=== PATIENT | male | born 1965 | race Caucasian/White ===

== ENCOUNTER 2022-12-05 21:03 | Emergency (ER) | payer MEDICAID, SELFPAY ==
[2022-12-05 21:08] VITALS: BP 113/65; PULSE 84; RESP 18; TEMP 36.4; O2SAT 95; BMI 26.5
--- NOTE | 2022-12-05 21:22 | XR_ITS ---
The [address] [address] Patient Name: CAROLANN JACKSON MRN: [id number] date: 1965 Sex: M Assigned Patient Location: ED.MAIN Current Patient Location: ER Accession/Order Number: [id number] Exam Date: 12/05/2022 22:08 Report Date: 12/05/2022 22:34 At the request of: TYRA BOND Procedure: XR ribs LT min 3V w CXR1V PLAIN FILM OF THE RIBS LEFT HISTORY: Rib pain. COMPARISON: None. TECHNIQUE: 1 frontal view of the chest and centimeters of the LEFTside of the ribs are submitted for review. FINDINGS: Chest: Lungs: No acute infiltrate. No pneumothorax. Heart: Normal. Pulmonary vessels: Normal. Costophrenic angles: Normal. Evaluation of the apices is limited due to patient's chin positioning. Ribs: Allowing for limitations of underlying lung markings, and overlying bowel gas: Bone mineralization within expected limits of normal. Osseous: No displaced rib fractures Soft tissues: Normal. XR/XR ribs LT min 3V w CXR1V IMPRESSION: Allowing for limitations of underlying lung markings, osteopenia and bowel gas obscuring osseous detail, there is no plain film evidence for displaced rib fracture. If symptoms continue, outpatient CT scan may help better delineate. Electronically authenticated by: KARY SYED Date: 12/05/2022 22:34
[2022-12-05 21:41] LABS: Basophils Absolute Auto 0.1 10^3/uL (0.0-0.1); Basophils Percent Auto 1.4 % (0.2-2.0); Hemoglobin 8.6 g/dL (14.0-18.0); Immature Granulocytes Abs Auto 0.02 10^3/uL (0.00-0.03); Immature Granulocytes Pct Auto 0.3 % (0.0-0.5); Lymphocytes Absolute Auto 1.1 10^3/uL (1.2-3.8); Lymphocytes Percent Auto 19.1 % (20.5-60.0); Mean Corpuscular HGB Conc 30.7 g/dL (29.9-35.2); Mean Corpuscular Hemoglobin 28.5 pg (25.9-34.0); Mean Corpuscular Volume 92.7 fL (80.0-94.0); Mean Platelet Volume 8.6 fL (9.5-13.5); Monocytes Absolute Auto 0.9 10^3/uL (0.3-0.8); Monocytes Percent Auto 15.1 % (1.7-12.0); Neutrophils Absolute Auto 3.8 10^3/uL (1.4-6.5); Neutrophils Percent Auto 64.1 % (43.0-75.0); Platelet Count 423 10^3/uL (150-450); Red Blood Count 3.02 10^6/uL (4.70-6.10); White Blood Count 5.9 10^3/uL (4.0-11.0)
[2022-12-05] MEDS: KETOROLAC TROMETHAMINE 30 MG/ML VIAL IM (21:41)
[2022-12-05 21:55] LABS: Alanine Aminotransferase 29 U/L (16-63); Albumin Globulin Ratio 0.9; Albumin Level 3.2 g/dL (3.4-5.0); Alkaline Phosphatase 93 U/L (46-116); Anion Gap 11.2; Aspartate Amino Transferase 22 U/L (15-37); Bilirubin Total 0.4 mg/dL (0.2-1.0); Calcium 8.1 mg/dL (8.5-10.1); Carbon Dioxide 25.5 mmol/L (21.0-32.0); Chloride 103 mmol/L (98-107); Estimated GFR (African America >60 (>=60); Estimated GFR (Non-African Ame >60 (>=60); Globulin 3.7 g/dL; Glucose 98 mg/dL (74-106); Potassium 3.7 mmol/L (3.5-5.1); Sodium 136 mmol/L (136-145); Total Protein 6.9 g/dL (6.4-8.2)
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
--- NOTE | 2022-12-05 22:30 | ED.GENADUL1 ---
HPI - General Adult General Chief complaint: Extremity Injury, Lower Stated complaint: INJURED FEET Time Seen by Provider: 12/05/22 21:13 Source: patient Mode of arrival: walk-in Limitations: no limitations History of Present Illness HPI narrative: The patient brought to [facility] for [facility], the patient was dropped here by the facility to medically clear him according to him he will go back to them once they make sure that he does not have any medical issues The patient have bilateral chronic lower extremity edema and he also had a fall that was recently already worked out at another facility with a chronic healing side of trauma to the right forehead the patient also mentioned that he been having this left-sided chest wall pain after falling and he think he might have broke some ribs The patient mentioned that the pain that there is sometimes whenever he feels this cracking sound to his chest wall Related Data Previous Rx's Medication Instructions Recorded amoxicillin 875 mg-potassium 1 tab PO BID #14 tabs 12/05/22 clavulanate 125 mg tablet bacitracin 500 unit/gram topical 1 applic topical BID #14.2 grams 12/05/22 ointment Allergies Allergy/AdvReac Type Severity Reaction Status Date / Time codeine Allergy Intermediate Verified 12/05/22 21:13 Review of Systems ROS Status of ROS 10 or more systems reviewed and unremarkable except as noted in history and below Exam Narrative Exam Narrative: Nurses notes and vital signs reviewed and patient is not hypoxic. General: Well-appearing and in no apparent distress. Skin: Warm, dry, no pallor noted. No rash. Head: Normocephalic, to the right side of the forehead the patient have an area of 2 x 3 cm oval in shape contusion with a chronic serous fluid coming out of it and possibly a chronic ulcer, no abscess drainage noted on pressure Neck: Supple, non-tender. Eye: Pupils are equal, round and EOMI. No scleral icterus. Ears, Nose, Mouth, and Throat: TM are clear, no nasal mucosal hypertrophy. Oral mucosa is moist, no posterior oropharynx erythema, uvula is mid-line Cardiovascular: Regular Rate and Rhythm without murmur, gallop or rub. Respiratory: No accessory muscle use or respiratory distress. Lungs are clear to auscultation, no wheezing, rales or rhonchi Chest Wall: no tenderness Back: No midline thoracic or lumbar vertebral tenderness. No CVA tenderness Musculoskeletal: Bilateral chronic 2+ edema to both lower extremities with no ulcers no wounds no vascular injury GI: Abdomen is soft, non-distended. Normal bowel sounds. No masses appreciated. No tenderness to palpation. No rebound, guarding, or rigidity noted. Neurological: A&O x4. No cranial nerve dysfunction observed. No truncal ataxia. Moves all extremities. Sensation intact. Psychiatric: Cooperative and interactive. Normal mood and affect. Constitutional Vital Signs, click to edit/add: Last Vital Signs Temp 97.6 F 12/05/22 21:08 Pulse 84 12/05/22 21:08 Resp 18 12/05/22 21:08 BP 113/65 12/05/22 21:08 Pulse Ox 95 12/05/22 21:08 O2 Del Method Room Air 12/05/22 21:08 Course Vital Signs Vital signs: Vital Signs Temperature 97.6 F 12/05/22 21:08 Pulse Rate 84 12/05/22 21:08 Respiratory Rate 18 12/05/22 21:08 Blood Pressure 113/65 12/05/22 21:08 Pulse Oximetry 95 12/05/22 21:08 Oxygen Delivery Method Room Air 12/05/22 21:08 Temperature 97.6 F 12/05/22 21:08 Pulse Rate 84 12/05/22 21:08 Respiratory Rate 18 12/05/22 21:08 Blood Pressure 113/65 12/05/22 21:08 Pulse Oximetry 95 12/05/22 21:08 Oxygen Delivery Method Room Air 12/05/22 21:08 Medical Decision Making [facility] Narrative Medical decision making narrative: The patient forehead swelling seem to have developed a small ulcer decided that could be infected with a serous fluid, that is very mild coming with pressure no fluctuation. The patient had bacitracin as well as Augmentin started CBC shows no acute significant pathology and the patient chemistry was within normal his x-ray of the left side of the ribs shows no fracture although the patient right now examination shows no tenderness on exam and further evaluation could be done as outpatient if needed The patient right now is medically cleared to go back to detox Lab Data Labs: Lab Results 12/05/22 Range/Units 21:33 WBC 5.9 (4.0-11.0) 10^3/uL RBC 3.02 L (4.70-6.10) 10^6/uL Hgb 8.6 L (14.0-18.0) g/dL Hct 28.0 L (42.0-54.0) % MCV 92.7 (80.0-94.0) fL MCH 28.5 (25.9-34.0) pg MCHC 30.7 (29.9-35.2) g/dL RDW 17.0 H (11.0-15.0) % Plt Count 423 (150-450) 10^3/uL MPV 8.6 L (9.5-13.5) fL Neut % (Auto) 64.1 (43.0-75.0) % Lymph % (Auto) 19.1 L (20.5-60.0) % Valley % (Auto) 15.1 H (1.7-12.0) % Eos % (Auto) 0.0 L (0.9-7.0) % Baso % (Auto) 1.4 (0.2-2.0) % Neut # (Auto) 3.8 (1.4-6.5) 10^3/uL Lymph # (Auto) 1.1 L (1.2-3.8) 10^3/uL Valley # (Auto) 0.9 H (0.3-0.8) 10^3/uL Eos # (Auto) 0.0 (0.0-0.7) 10^3/uL Baso # (Auto) 0.1 (0.0-0.1) 10^3/uL Abs Immat Gran (auto) 0.02 (0.00-0.03) 10^3/uL Imm/Tot Granulo (auto) 0.3 (0.0-0.5) % Sodium 136 (136-145) mmol/L Potassium 3.7 (3.5-5.1) mmol/L Chloride 103 (98-107) mmol/L Carbon Dioxide 25.5 (21.0-32.0) mmol/L Anion Gap 11.2 BUN 12.0 (7.0-18.0) mg/dL Creatinine 1.09 (0.70-1.30) mg/dL Est GFR ( Amer) >60 (>=60) Est GFR (Non-Af Amer) >60 (>=60) BUN/Creatinine Ratio 11.0 Glucose 98 (74-106) mg/dL Calcium 8.1 L (8.5-10.1) mg/dL Total Bilirubin 0.4 (0.2-1.0) mg/dL AST 22 (15-37) U/L ALT 29 (16-63) U/L Alkaline Phosphatase 93 (46-116) U/L Total Protein 6.9 (6.4-8.2) g/dL Albumin 3.2 L (3.4-5.0) g/dL Globulin 3.7 g/dL Albumin/Globulin Ratio 0.9 Discharge Plan Discharge Chief Complaint: Extremity Injury, Lower Clinical Impression: Skin ulcer of forehead, Encounter for medical clearance for patient hold, Localized swelling of both lower legs Patient Disposition: Home, Self-Care Time of Disposition Decision: 22:51 Condition: Good Prescriptions / Home Meds: New amoxicillin-pot clavulanate 875-125 mg tablet 1 tab PO BID Qty: 14 0RF bacitracin 500 unit/gram ointment 1 applic topical BID Qty: 14.2 0RF Rx Instructions: apply to the forehead bid Stand Alone Forms: Portal Instructions Referrals: Physician,Non-Staff, MD [Primary Care Provider] - 1 week Discharge Date/Time: 12/05/22 23:44
[2022-12-05] MEDS: BACITRACIN 0.9 GM PACKET 1 PACKET TOPICAL (22:54)
== END 2022-12-05 23:44 | disposition home or self-care (01) ==
PROVIDERS: Emergency Provider Emergency Medicine
DX: M79.89 Other specified soft tissue disorders (principal); L98.499 Non-pressure chronic ulcer of skin of other sites with unspecified severity
CPT/HCPCS: 36415; 71101; 80053; 85025; 96372; 99285

== ENCOUNTER 2022-12-12 18:01 | Emergency (ER) | payer MEDICAID, SELFPAY ==
[2022-12-12 18:05] VITALS: BP 129/78; PULSE 95; RESP 16; TEMP 36.6; O2SAT 99; BMI 28.7
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
[2022-12-12 18:30] VITALS: RESP 16
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
[2022-12-12] MEDS: KETOROLAC TROMETHAMINE 60 MG/2 ML VIAL IM (18:38)
== END 2022-12-12 19:01 | disposition home or self-care (01) ==
PROVIDERS: Emergency Provider Emergency Medicine
DX: R07.89 Other chest pain (principal); Z87.891 Personal history of nicotine dependence
CPT/HCPCS: 71101; 96372; 99284